=== PATIENT | female | born 1995 | race Caucasian/White ===

== ENCOUNTER 2024-08-26 13:33 | Inpatient (IN) | payer MEDICAID ==
[~2024-08-26] VITALS: Ht 165.1 cm; Wt 89.5 kg
[2024-08-26] MEDS ORDERED: ONDANSETRON HCL/PF 4 MG/2 ML VIAL ONE (13:53)
[2024-08-26] MEDS ORDERED: HYDROMORPHONE 1 MG/1 ML DISP.SYRIN ONE (13:53)
[2024-08-26] MEDS: IV NS 0.9% 1,000 ML BAG IV ONE (13:55)
[2024-08-26] MEDS: HYDROMORPHONE INJ 2 MG/ML DISP.SYRIN IV ONE (14:07)
[2024-08-26] MEDS: ONDANSETRON HCL/PF 4 MG/2 ML VIAL IVP ONE (14:07)
[2024-08-26 14:16] LABS: CALCIUM, SERUM 9.6 mg/dL (8.5-10.1); CARBON DIOXIDE 30 mmol/L (21-32); CHLORIDE 104 mmol/L (98-107); CREATININE 1.2 mg/dL (0.6-1.3); GLUCOSE 96 mg/dL (74-106); POTASSIUM 4.3 mmol/L (3.5-5.1); SODIUM SERUM 142 mmol/L (136-145); UREA NITROGEN, BLOOD 14 mg/dL (7-18)
[2024-08-26 14:18] LABS: PREGNANCY TEST URINE QUAL NEGATIVE (NEGATIVE)
[2024-08-26] MEDS ORDERED: KETOROLAC TROMETHAMINE 15 MG/ML VIAL ONE (14:18)
[2024-08-26] MEDS ORDERED: CEFTRIAXONE 1GM BAG (ER ONLY) 50 ML IV ONE (14:20)
[2024-08-26 14:22] LABS: ALANINE AMINOTRANSFERASE 24 U/L (12-78); ALBUMIN 3.8 g/dL (3.4-5.0); ALKALINE PHOSPHATASE 85 U/L (46-116); ASPARTATE AMINOTRANSFERASE 15 U/L (15-37); BILIRUBIN,DIRECT 0.1 mg/dL (0.0-0.2); BILIRUBIN,TOTAL 0.6 mg/dL (0.2-1.0); LIPASE 35 U/L (16-77); TOTAL PROTEIN, SERUM 8.3 g/dL (6.4-8.2)
[2024-08-26 14:22] LABS: APPEARANCE,URINE CLEAR (CLEAR); BILIRUBIN,URINE 1+ (NEGATIVE); BLOOD, URINE 1+ Ery/uL (NEGATIVE); KETONES,URINE TRACE mg/dL (NEGATIVE); LEUKOCYTE ESTERASE ,URINE TRACE (NEGATIVE); NITRITE, URINE POSITIVE (NEGATIVE); PROTEIN,URINE 1+ mg/dl (NEGATIVE); UGLUCOSE TRACE mg/dL (NEGATIVE)
[2024-08-26 14:23] LABS: BASOPHILS # (AUTO) 0.1 K/uL (0.0-0.2); BASOPHILS % (AUTO) 0.7 % (0.0-2.0); EOSINOPHILS # (AUTO) 0.3 K/uL (0.0-0.7); EOSINOPHILS % (AUTO) 3.5 % (0.0-6.0); HEMATOCRIT 42 % (33-45); HEMOGLOBIN 13.8 g/dL (11.5-14.8); LYMPHOCYTES # (AUTO) 2.3 K/uL (0.8-4.8); LYMPHOCYTES % (AUTO) 28.4 % (20.0-44.0); MEAN CORPUSCULAR HEMOGLOBIN 26 PG (26.0-33.0); MEAN CORPUSCULAR HGB CONC 33 g/dl (31.0-36.0); MEAN CORPUSCULAR VOLUME 80 fL (82-100); MONOCYTES # (AUTO) 0.6 K/uL (0.1-1.30); MONOCYTES % (AUTO) 7.6 % (2.0-12.0); NEUTROPHILS # (AUTO) 4.8 K/uL (1.8-8.9); NEUTROPHILS % (AUTO) 59.8 % (43.0-81.0); PLATELET COUNT (AUTO) 280 K/uL (150-450); RED BLOOD CELL COUNT(AUTO) 5.27 MIL/uL (4.0-5.2); RED CELL DISTRIBUTION WIDTH 14.7 % (11.5-15.0)
[2024-08-26] MEDS: CEFTRIAXONE 1GM BAG (ER ONLY) 1 GM/50 ML PIGGYBACK IV ONE (14:23)
[2024-08-26] MEDS: KETOROLAC TROMETHAMINE 15 MG/ML VIAL IV ONE (14:24)
[2024-08-26 14:25] LABS: COLOR,URINE DARK YELLOW (YELLOW)
[2024-08-26 14:27] LABS: ADD URINE CULTURE YES; BACTERIA,URINE Few /HPF (None Seen)
[2024-08-26] MEDS ORDERED: KETOROLAC TROMETHAMINE INJ 30 MG/ML VIAL ONE (14:28)
[2024-08-26] MEDS: KETOROLAC TROMETHAMINE INJ 30 MG/ML VIAL IV ONE (14:30)
[2024-08-26 14:41] LABS: LACTIC ACID 2.4 mmol/L (0.4-2.0)
[2024-08-26] MEDS: IV NS 0.9% 1,000 ML IV ONE (14:56)
[2024-08-26] MEDS ORDERED: MORPHINE SULFATE INJ 4 MG/ML DISP.SYRIN ONE (15:30)
[2024-08-26] MEDS: MORPHINE SULFATE INJ 2 MG/ML DISP.SYRIN IV ONE (15:34)
[2024-08-26] MEDS ORDERED: D-MANNOSE PO (15:39)
[2024-08-26] MEDS ORDERED: AZO URINARY PAIN PO (15:39)
[2024-08-26] MEDS ORDERED: SULF1TAB48 PO (15:39)
[2024-08-26] MEDS ORDERED: CRAN1TAB PO (15:39)
[2024-08-26 18:56] VITALS: BP 108/67; TEMP 98.1
[2024-08-26] MEDS: IV NS 0.9% 1,000 ML IV PRN (20:15)
[2024-08-26] MEDS: ACETAMINOPHEN 325 MG TABLET PO PRN (20:16)
[2024-08-26 21:00] VITALS: BP 111/62; TEMP 97.7; O2SAT 98
[2024-08-26 21:08] VITALS: BP 111/62; TEMP 97.7; O2SAT 98
[2024-08-26] MEDS: TAMSULOSIN 0.4 MG CAP.SR.24H PO SCH (21:17)
[2024-08-26] MEDS: MORPHINE SULFATE INJ 2 MG/ML DISP.SYRIN IV PRN (21:32)
[2024-08-27] MEDS: KETOROLAC TROMETHAMINE 15 MG/ML VIAL IV PRN (01:17)
[2024-08-27] MEDS: ONDANSETRON HCL/PF 4 MG/2 ML VIAL IVP PRN (02:51)
[2024-08-27 07:30] VITALS: BP 118/68; TEMP 98.6; O2SAT 94
[2024-08-27 07:43] LABS: BASOPHILS % (AUTO) 0.4 % (0.0-2.0); EOSINOPHILS # (AUTO) 0.1 K/uL (0.0-0.7); EOSINOPHILS % (AUTO) 1.2 % (0.0-6.0); HEMATOCRIT 35 % (33-45); HEMOGLOBIN 11.4 g/dL (11.5-14.8); LYMPHOCYTES % (AUTO) 21.5 % (20.0-44.0); MEAN CORPUSCULAR HEMOGLOBIN 26 PG (26.0-33.0); MEAN CORPUSCULAR HGB CONC 33 g/dl (31.0-36.0); MEAN CORPUSCULAR VOLUME 81 fL (82-100); MONOCYTES # (AUTO) 0.7 K/uL (0.1-1.30); MONOCYTES % (AUTO) 8.1 % (2.0-12.0); NEUTROPHILS # (AUTO) 6.3 K/uL (1.8-8.9); NEUTROPHILS % (AUTO) 68.8 % (43.0-81.0); PLATELET COUNT (AUTO) 217 K/uL (150-450); RED BLOOD CELL COUNT(AUTO) 4.35 MIL/uL (4.0-5.2); RED CELL DISTRIBUTION WIDTH 14.7 % (11.5-15.0); WHITE BLOOD COUNT (AUTO) 9.2 K/uL (4.3-11.0)
[2024-08-27 08:00] LABS: CALCIUM, SERUM 8.1 mg/dL (8.5-10.1); CREATININE 0.9 mg/dL (0.6-1.3); MAGNESIUM 1.9 mg/dL (1.8-2.4); POTASSIUM 4.1 mmol/L (3.5-5.1)
[2024-08-27] MEDS: DIAZEPAM 5 MG TABLET PO SCH (10:30)
[2024-08-27] MEDS: KETOROLAC TROMETHAMINE 15 MG/ML VIAL IV SCH (10:34)
[2024-08-27] MEDS: CEFTRIAXONE 1 G in IV D5W 50 ML IV SCH (13:43)
[2024-08-27 16:28] VITALS: BP 129/63; TEMP 98.8; O2SAT 94
[2024-08-27 20:00] VITALS: BP 112/69; TEMP 98.1; O2SAT 96
[2024-08-27 20:33] VITALS: BP 112/69; TEMP 98.7
[2024-08-27 23:41] VITALS: BP 126/66; TEMP 98.1; O2SAT 96
[2024-08-28 06:06] VITALS: BP 126/66; TEMP 98.1; O2SAT 96
[2024-08-28 08:00] VITALS: BP 117/79; TEMP 98.6; O2SAT 97
[2024-08-28] MEDS ORDERED: IBUP-1957 PO (11:16)
[2024-08-28] MEDS ORDERED: NITR100C PO (11:16)
[2024-08-28] MEDS ORDERED: HYDR-3972 PO (11:16)
== END 2024-08-28 16:10 | disposition home or self-care (01) | DRG 465 ==
LOC: ER 13:33 → TELE 16:37 → MED 17:53
PROVIDERS: ADMIT Nurse Practitioner Acute Care; ATTEND Internal Medicine
DX: N20.2 Calculus of kidney with calculus of ureter (principal); N39.0 Urinary tract infection, site not specified; B96.89 Other specified bacterial agents as the cause of diseases classified elsewhere; Z87.442 Personal history of urinary calculi; R91.1 Solitary pulmonary nodule
CPT/HCPCS: 36415; 80048-TC; 80076-TC; 81001; 83605-TC; 83690-TC; 83735-TC; 84100-TC; 84703-TC; 85025-TC; 87040-TC; A4223; G0378; J0696; J1171; J1885; J2270; J2405; J7030; J7060